=== PATIENT | male | born 1990 | race African-American/Black ===

== ENCOUNTER 2021-06-17 15:11 | Inpatient (IN) ==
[2021-06-17 16:11] LABS: Basophils # 0.1 K/mcL (0.0-0.2); Basophils % 0.6 %; Eosinophils % 0.4 %; Hematocrit 48.1 % (37.5-50.1); Immature Granulocytes % 0.3 % (0-4); Lymphocytes # 2.4 K/mcL (0.6-4.6); Lymphocytes % 23.6 %; Mean Corpuscular HGB Conc 33.3 g/dL (31.6-35.5); Mean Corpuscular Hemoglobin 29.4 pg (28.0-33.3); Mean Corpuscular Volume 88.3 fL (83.0-100.0); Mean Platelet Volume 8.9 fL (9.4-12.4); Monocytes # 0.8 K/mcL (0.0-1.3); Monocytes % 8.1 %; Neutrophils # 6.9 K/mcL (1.6-8.9); Platelet Count 394 K/mcL (140-400); Red Blood Count 5.45 M/mcL (4.19-5.50); Red Cell Distribution Width 11.9 % (11.5-14.5); White Blood Count 10.3 K/mcL (4.3-11.1)
[2021-06-17 16:12] LABS: Bilirubin,Urine Negative (Negative); Blood,Urine Small (Negative); Clarity,Urine Clear (Clear); Color,Urine Yellow (Yellow); Glucose,Urine (UA) Normal (Normal); Hyaline Casts,Urine Few per lpf (None Seen); Ketones,Urine 80 mg/dL (Negative); Leukocyte Esterase,Urine Negative (Negative); Mucus,Urine Moderate per lpf (None-Few); Nitrite,Urine Negative (Negative); PH,Urine 5.5 pH Units (5.0-8.0); Protein,Urine 70 mg/dL (Neg-Trace); RBC,Urine 0-3 per hpf (0-3); Specific Gravity,Urine > 1.030 (1.010-1.025); Urobilinogen,Urine Normal (Normal); WBC,Urine 0-3 per hpf (0-3)
[2021-06-17 16:19] LABS: Estimated Average Glucose 108 mg/dl; Hemoglobin A1C 5.4 %
[2021-06-17 16:25] LABS: Amphetamine Screen,Urine Negative ng/mL (Cutoff=1000); Barbiturate Screen,Urine Negative ng/mL (Cutoff=200); Benzodiazepines Screen,Urine Negative ng/mL (Cutoff=200); Cannabinoid Screen,Urine Positive ng/mL (Cutoff = 50); Cocaine Screen,Urine Negative ng/mL (Cutoff= 300); Opiate Screen,Urine Negative ng/mL (Cutoff=300); Phencyclidine Screen,Urine Negative ng/mL (Cutoff=25)
[2021-06-17 16:40] LABS: Acetaminophen < 10 mcg/mL (10-20); Alanine Aminotransferase 18 Units/L (7-52); Albumin 5.6 g/dL (3.5-5.7); Albumin/Globulin Ratio 1.8 (1.1-2.2); Alkaline Phosphatase 50 Units/L (34-104); Aspartate Amino Transferase 24 Units/L (13-39); BUN/Creatinine Ratio 14 (6-26); Bilirubin,Direct 0.1 mg/dL (0.0-0.2); Bilirubin,Indirect 0.8 mg/dL (0.0-1.0); Bilirubin,Total 0.9 mg/dL (0.3-1.0); Blood Urea Nitrogen 16 mg/dL (6-20); Calcium 10.4 mg/dL (8.6-10.3); Carbon Dioxide 26 mEq/L (23-29); Chloride 102 mEq/L (98-107); Chol/HDL Ratio 6.8 (0-4.9); Cholesterol 157 mg/dL (< 200); Ethanol < 10 mg/dL (Less than 10); Globulin 3.2 g/dL (2.4-3.5); Glucose 111 mg/dL (70-105); HDL Cholesterol 23 mg/dL (40-59); LDL Cholesterol,Calculated 120 mg/dL (< 100); Osmolality,Calculated 288 (280-300); Potassium 4.1 mEq/L (3.5-5.1); Salicylate < 2.5 mg/dL (15.0-30.0); Sodium 138 mEq/L (136-145); Thyroid Stimulating Hormone 0.813 mcIU/mL (0.340-5.600); Total Protein 8.8 g/dL (6.4-8.9); Triglycerides 72 mg/dL (< 150); eGFR For African Americans > 60 (> 60); eGFR For Non-African Americans > 60 (> 60)
[2021-06-17 22:56] LABS: Influenza A PCR Negative (Negative); Influenza B PCR Negative (Negative); Resp. Syncytial Virus PCR Negative (Negative)
[2021-06-17 22:59] LABS: SARS-CoV-2 by PCR (In House) Negative (Negative)
[2021-06-17] MEDS ORDERED: *HR* LORazepam 2 MG/ML VIAL IM PRN (23:22)
[2021-06-17] MEDS ORDERED: Acetaminophen 325 MG TABLET PO PRN (23:22)
[2021-06-17] MEDS ORDERED: traZODone 50 MG TABLET PO PRN (23:22)
[2021-06-17] MEDS ORDERED: Haloperidol Lactate 5 MG/ML VIAL IM PRN (23:22)
[2021-06-17] MEDS ORDERED: hydrOXYzine pamoate 25 MG CAPSULE PO PRN (23:22)
[2021-06-17] MEDS: haloperidoL 5 MG TABLET PO PRN (23:38)
[2021-06-17] MEDS: *HR* LORazepam 1 MG TABLET PO PRN (23:38)
[2021-06-18] MEDS: haloperidoL 5 MG TABLET PO PRN (10:33)
[2021-06-18] MEDS: *HR* LORazepam 1 MG TABLET PO PRN (10:33)
[2021-06-18] MEDS ORDERED: *HR* LORazepam 2 MG/ML VIAL IM ONE (12:15)
[2021-06-18] MEDS ORDERED: MOM Conc 10 ML UD.LIQ PO PRN (14:42)
[2021-06-18] MEDS ORDERED: Mag Hydrox/Al Hydrox/Simeth 30 ML UDC PO PRN (14:42)
[2021-06-18] MEDS: *HR* LORazepam 1 MG TABLET PO SCH ×2 (18:23→23:06)
[2021-06-19] MEDS: *HR* LORazepam 1 MG TABLET PO SCH ×3 (10:47→20:08)
[2021-06-19 12:43] LABS: Alanine Aminotransferase 19 Units/L (7-52); Aspartate Amino Transferase 29 Units/L (13-39); Creatine Kinase 729 Units/L (30-223)
[2021-06-20] MEDS: *HR* LORazepam 1 MG TABLET PO SCH ×3 (08:51→20:44)
[2021-06-20] MEDS ORDERED: OLANZapine 5 MG TAB.RAPDIS PO SCH (21:00)
[2021-06-21] MEDS: *HR* LORazepam 1 MG TABLET PO SCH ×2 (08:24→20:56)
[2021-06-21] MEDS ORDERED: OLANZapine 5 MG TAB.RAPDIS PO SCH (21:00)
[2021-06-21] MEDS: OLANZapine 10 MG TAB.RAPDIS PO SCH (21:02)
[2021-06-22] MEDS: *HR* LORazepam 1 MG TABLET PO SCH ×3 (09:16→21:34)
[2021-06-22] MEDS: OLANZapine 10 MG TAB.RAPDIS PO SCH (21:34)
[2021-06-23] MEDS: *HR* LORazepam 1 MG TABLET PO SCH ×3 (09:26→20:53)
[2021-06-23] MEDS: OLANZapine 10 MG TAB.RAPDIS PO SCH (20:53)
[2021-06-24] MEDS: *HR* LORazepam 1 MG TABLET PO SCH ×3 (08:38→20:15)
[2021-06-24] MEDS: OLANZapine 10 MG TAB.RAPDIS PO SCH (20:15)
[2021-06-25] MEDS: *HR* LORazepam 1 MG TABLET PO SCH (09:52)
[2021-06-25 11:25] VITALS: BP 172/96; PULSE 94; TEMP 98.1; O2SAT 99
== END 2021-06-25 13:30 | disposition home or self-care (01) | DRG 751 ==
LOC: EMEROOARM 15:11 → 1ANU 23:19 → EDBD 23:19 → 1ANU 06-18 00:25
PROVIDERS: ADMIT Psychiatry & Neurology Psychiatry; ATTEND Psychiatry & Neurology Psychiatry